=== PATIENT | female | born 1990 | race Caucasian/White ===

== ENCOUNTER 2016-09-08 13:08 | Inpatient (IN) | payer BC ==
[~2016-09-08] VITALS: Ht 170.2 cm; Wt 97.3 kg
[~2016-09-08 13:08] MED LIST: NORCO 325 MG-51 TAB PO; PRENATAL PO; REGLAN 10MG10 MG/TAB PO; SPRINTEC 35 MCG1 TAB PO; ZOFRAN 4MG T4 MG/TAB PO
[2016-10-21 20:03] LABS: BASO % 0.3 % (0.0-2.0); EOS # 0.1 (0.0-0.7); GRAN # 6.7 (1.4-6.5); GRAN % 64.2 % (42.2-75.2); HEMOGLOBIN 12.4 g/dl (12.5-16.0); LYMPH # 2.4 (1.2-3.4); LYMPH % 22.8 % (20.0-51.0); MEAN CELL VOLUME 85 fl (80.0-100.0); MEAN CORPUSCULAR HEMOGLOBIN 29 pg (27.0-31.0); MEAN CORPUSCULAR HGB CONC 34 g/dl (33.0-37.0); MEAN PLATELET VOLUME 10.1 fl (7.4-10.4); MONO % 9.6 % (1.7-9.3); PLATELET COUNT 193 K/mm3 (130-400); RED BLOOD COUNT 4.31 M/mm3 (4.10-5.30); REDCELL DISTRIBUTION WIDTH-CV 13.6 % (11.5-14.5); WHITE BLOOD COUNT 10.4 K/mm3 (4.8-10.8)
[2016-10-21 20:09] LABS: HEMATOCRIT 36.4 % (37.0-47.0)
[2016-10-21 20:30] VITALS: BP 134/77; PULSE 76; TEMP 98.2
[2016-10-21 21:00] VITALS: BP 133/73; PULSE 71
[2016-10-21 21:30] VITALS: BP 120/78; PULSE 69
[2016-10-21 21:56] VITALS: BP 132/83; PULSE 75
[2016-10-22] VITALS (67 sets, daily range): BP systolic 105–153; BP diastolic 55–111; PULSE 67–141; TEMP 97.8–98.9
[2016-10-22] MEDS ORDERED: PERCOCET 325 MG1 TA2 PO (03:20)
[2016-10-22] MEDS ORDERED: MOTRIN 800800 MG/TAB PO (03:20)
[2016-10-23 02:38] VITALS: BP 105/65; PULSE 87; TEMP 97.8
[2016-10-23 08:00] VITALS: BP 130/68; PULSE 87; TEMP 97.9
[2016-10-23 12:30] VITALS: BP 128/71; PULSE 88; TEMP 97.5
[2016-10-23 16:38] VITALS: BP 122/67; PULSE 84
[2016-10-23 19:45] VITALS: BP 116/65; PULSE 94; TEMP 97.5
[2016-10-24 06:45] VITALS: BP 103/62; PULSE 91; TEMP 98.2
[2016-10-24] MEDS ORDERED: IBU800 M1 PO (10:40)
== END 2016-10-24 11:50 | disposition home or self-care (01) | DRG 767 ==
LOC: LDR 10-21 09:01 → OB 10-21 19:00 → EDSTATUS 10-27 08:59 → LDRO 10-27 13:08
PROVIDERS: Obstetrics & Gynecology
PROC: 10E0XZZ Delivery of Products of Conception, External Approach (ICD-10-PCS; principal; 2016-10-21)
PROC: 10D17ZZ Extraction of Products of Conception, Retained, Via Natural or Artificial Opening (ICD-10-PCS; 2016-10-21)
PROC: 0KQM0ZZ Repair Perineum Muscle, Open Approach (ICD-10-PCS; 2016-10-21)
DX: O70.1 Second degree perineal laceration during delivery (principal); O73.0 Retained placenta without hemorrhage; O69.89X0 Labor and delivery complicated by other cord complications, not applicable or unspecified; Z3A.39 39 weeks gestation of pregnancy; Z37.0 Single live birth
CPT/HCPCS: J0595; J0690; J2400; J2405; J2590; J7120

== ENCOUNTER 2016-10-16 08:40 | Outpatient (CLI) | payer BC ==
[~2016-10-16] VITALS: Ht 170.2 cm; Wt 97.7 kg
[2016-10-16 08:45] VITALS: BP 129/87; PULSE 103; TEMP 98.2
[2016-10-16 08:50] VITALS: BP 129/87; PULSE 103; TEMP 98.2
[2016-10-16 09:05] VITALS: PULSE 98
[2016-10-16 09:45] VITALS: BP 124/79; PULSE 89
[2016-10-16 09:58] LABS: HEMATOCRIT 37.7 % (37.0-47.0); HEMOGLOBIN 12.9 g/dl (12.5-16.0); MEAN CELL VOLUME 86 fl (80.0-100.0); MEAN CORPUSCULAR HEMOGLOBIN 30 pg (27.0-31.0); MEAN CORPUSCULAR HGB CONC 34 g/dl (33.0-37.0); PLATELET COUNT 186 K/mm3 (130-400); RED BLOOD COUNT 4.37 M/mm3 (4.10-5.30); REDCELL DISTRIBUTION WIDTH-CV 13.7 % (11.5-14.5); WHITE BLOOD COUNT 9.5 K/mm3 (4.8-10.8)
[2016-10-16 10:03] LABS: ADJUSTED CALCIUM 9.8 mg/dL (8.4-10.2); ALBUMIN 3.2 gm/dL (3.5-5.0); BILIRUBIN,TOTAL 0.4 mg/dL (0.0-1.0); CALCIUM 9.2 mg/dL (8.4-10.2); CREATININE, serum 0.56 mg/dL (0.52-1.25); POTASSIUM 3.8 mmol/L (3.4-5.0); TOTAL PROTEIN 6.4 gm/dL (6.4-8.2)
[2016-10-16 10:06] LABS: PH 6 (5-8); URINE APPEARANCE Hazy; URINE BACTERIA Occasional /hpf; URINE BILIRUBIN Negative (NEGATIVE); URINE BLOOD Negative (NEGATIVE); URINE COLOR Yellow; URINE GLUCOSE Negative (NEGATIVE); URINE KETONE Negative (NEGATIVE); URINE RBC None Seen /hpf; URINE UROBILINOGEN Negative (NEGATIVE)
[2016-10-16 10:36] VITALS: BP 113/73; PULSE 71
== END 2016-10-16 10:42 | disposition home or self-care (01) ==
LOC: LDRO 08:40
PROVIDERS: Obstetrics & Gynecology
DX: O21.2 Late vomiting of pregnancy (principal); M54.5 Low back pain; Z3A.38 38 weeks gestation of pregnancy